=== PATIENT | male | born 1955 | race Caucasian/White ===

== ENCOUNTER → 2017-06-08 | Outpatient (CLI) | payer OTHER ==
--- NOTE | 2017-06-08 15:22 | DIAGNOSTIC IMAGING REPORT ---
CHEST 2 VIEWS ROUTINE CLINICAL HISTORY: 61 years-old Male presenting with CHEST PAIN. TECHNIQUE: PA and lateral views of the chest were obtained. COMPARISON: 10/10/2015. FINDINGS: Cardiomediastinal silhouette normal. Lungs and pleural spaces clear. Degenerative changes of the thoracic spine. Deformity of the right humeral neck could suggest prior fracture. Upper abdomen normal. IMPRESSION: 1. No acute cardiopulmonary disease. Electronically signed by: Rigo Pierre M.D. 06/08/2017 3:21 PM Dictated Date/Time: 06/08/2017 3:20 PM
== END | disposition home or self-care (01) ==
LOC: C.RAD1850 15:11
PROVIDERS: ATTEND Family Medicine
DX: R07.9 Chest pain, unspecified (principal)

== ENCOUNTER → 2017-09-21 | Outpatient (CLI) | payer OTHER ==
[~2017-09-21] VITALS: Ht 177.8 cm; Wt 100.7 kg
[2017-09-21 15:59] VITALS: BP 133/84; PULSE 83; Ht 177.8 cm; Wt 100.7 kg
== END | disposition home or self-care (01) ==
LOC: C.NEUR 14:29
PROVIDERS: ATTEND Internal Medicine Pulmonary Disease
DX: G47.33 Obstructive sleep apnea (adult) (pediatric) (principal)